=== PATIENT | male | born 1930 | race Caucasian/White ===

== ENCOUNTER 2019-01-21 09:40 | Outpatient (CLI) | payer MEDICARE, BC ==
--- NOTE | 2019-01-21 10:26 | RAD ---
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 Neck pain and right arm numbness and tingling. FINDINGS: There is loss of cervical lordosis with straightening of the cervical spine. There are degenerative c hanges most prominent at C5-6 level. No fracture, subluxation, or bony destruction identified. IMPRESSION: Cervical spondylosis. POS: [facility]
== END 2019-01-21 09:41 | disposition home or self-care (01) ==
LOC: SCSRAD 09:40
PROVIDERS: ATTEND Psychiatry & Neurology Neurology
DX: M50.323 Other cervical disc degeneration at C6-C7 level (principal); M47.812 Spondylosis without myelopathy or radiculopathy, cervical region
CPT/HCPCS: 72040